=== PATIENT | male | born 1955 | race Caucasian/White ===

== ENCOUNTER → 2017-04-24 | Outpatient (CLI) | payer MEDICARE, MEDICAID ==
[~2017-04-24] MED LIST: ALLO300T2 PO; BNZ40T PO; CLON0.2T PO; DILT240T10 PO; FURO40TA4 PO; METH10TA2 PO; MORP15TA PO; POTA-51 PO
== END ==
LOC: CARD 13:19
PROVIDERS: ATTEND Internal Medicine Interventional Cardiology
DX: R00.1 Bradycardia, unspecified (principal); I10 Essential (primary) hypertension; E66.9 Obesity, unspecified
CPT/HCPCS: 93306

== ENCOUNTER 2017-06-23 08:51 | Outpatient (RCR) | payer MEDICARE, MEDICAID ==
[~2017-06-23 08:51] MED LIST changes: +BENA40TA5 PO; -BNZ40T PO
== END 2017-09-21 | disposition home or self-care (01) ==
LOC: CARD 08:51
PROVIDERS: ATTEND Internal Medicine Interventional Cardiology
DX: R00.1 Bradycardia, unspecified (principal); I10 Essential (primary) hypertension; E66.9 Obesity, unspecified; K74.60 Unspecified cirrhosis of liver
CPT/HCPCS: 93225; 93226

== ENCOUNTER → 2018-12-17 | Outpatient (CLI) | payer MEDICARE, MEDICAID ==
--- NOTE | 2018-12-17 09:21 | Diagnostic Imaging Report ---
CT low-dose lung cancer screening. Indication: 30 pack smoking history. Routine images of thorax were performed using the low-dose lung cancer screening protocol. There are no prior studies available for comparison. The lungs are generally clear. There is no parenchymal lung mass identified. There is no sign of failure, pneumonia or pleural effusion. Heart size is within normal limits. There are coronary artery calcifications evident. The aorta is not abnormally dilated. There is no obvious mediastinal or hilar adenopathy. The thyroid gland where visualized is unremarkable. The sections through the upper abdomen fail to show any sign of acute abnormality. The bone windows are unremarkable for fracture or for a destructive lesion. Impression: 1. There is no parenchymal lung mass identified. A followup low-dose lung cancer screening exam in one year would be recommended for further study. 2. There is no acute cardiopulmonary abnormality noted. 3. There is coronary artery disease. LUNG-RADS category 1 Dictated by: Dictated on workstation # [id number]
== END ==
LOC: RAD 08:05
PROVIDERS: ATTEND Registered Nurse
DX: Z00.00 Encounter for general adult medical examination without abnormal findings (principal); Z87.891 Personal history of nicotine dependence; I25.10 Atherosclerotic heart disease of native coronary artery without angina pectoris

== ENCOUNTER → 2021-08-11 | Outpatient (CLI) | payer MEDICARE, OTHER, MEDICAID ==
[~2021-08-11] MED LIST changes: -BENA40TA5 PO; +BENA40TA84 PO; +CLN.2T PO; -CLON0.2T PO; +METH-742 PO; -METH10TA2 PO
== END ==
LOC: CARD 11:42
PROVIDERS: ATTEND Internal Medicine Cardiovascular Disease
DX: I35.0 Nonrheumatic aortic (valve) stenosis (principal); I51.7 Cardiomegaly
CPT/HCPCS: 93306

== ENCOUNTER → 2021-08-12 | Outpatient (CLI) | payer MEDICARE, MEDICAID ==
[~2021-08-12] VITALS: Ht 177 cm; Wt 102.0 kg
[~2021-08-12] MED LIST changes: +CATHETER FLUSH 10 ML SYR IVP PRN
[2021-08-12 09:02] VITALS: BP 180/94
--- NOTE | 2021-08-13 13:20 | NUCLEAR STRESS TEST ---
TREADMILL NUCLEAR STRESS TEST Date of procedure: 08/12/2021. Primary care provider: Juni Zhang APRN. Admitting physician: Neftali Daniel Jr., MD. INDICATION: Paroxysmal atrial fibrillation. BASELINE ELECTROCARDIOGRAM: Atrial fibrillation with a ventricular rate of 84 bpm with nonspecific intraventricular conduction delay, possible anterior myocardial infarction and nonspecific ST-T wave changes in the lateral leads. STRESS TEST PROCEDURE: The patient was exercised for a total of 2 minutes and 10 seconds of the standard Chao protocol achieving a maximum MET level of 3.6. The resting heart rate was 84 bpm and the peak heart rate was 164 bpm, which represents 107% of the maximum predicted heart rate. The resting blood pressure was 143/85 mmHg and the peak blood pressure was 254/133 mmHg. This represents a normal heart rate and a hypertensive blood pressure response to exercise. The test was stopped due to []. There was no chest discomfort during the test. The patient was in atrial fibrillation for the duration of the test and they were premature ventricular complexes versus aberrancy as isolated and couplet beats during stress. The stress electrocardiogram was indeterminate due to the baseline abnormalities. The patient exhibited fair exercise capacity for age. NUCLEAR PROCEDURE: The patient was administered 10.5 mCi of intravenous technetium 99m Tetrofosmin at rest for the rest images. The patient was subsequently administered 28.1 mCi of intravenous technetium 99 M Tetrofosmin at peak stress for the stress images. Following an appropriate wait after each injection, imaging was obtained. The images were subsequently processed and reformatted in the usual views. Gated imaging was obtained. The image quality was adequate with a mild degree of gastrointestinal attenuation artifact. CT attenuation correction was used as a adjunct to standard imaging. Both the corrected and uncorrected images were reviewed for interpretation. NUCLEAR RESULTS: There was normal myocardial perfusion in all segments without evidence of infarction or ischemia. The left ventricle was dilated with an end- diastolic volume of 153 mL and an end-systolic volume of 114 mL. There was no evidence of transient ischemic dilatation. The TID ratio was 0.97. There was severe global hypokinesis with a calculated ejection fraction of 25%. IMPRESSION: 1. Normal heart rate and a hypertensive blood pressure response to exercise. 2. There was no chest discomfort during the test. 3. The patient was in atrial fibrillation for the duration of the test and there were premature ventricular complexes versus aberrancy as isolated and coup let beats during stress. 4. The stress electrocardiogram was indeterminate due to the baseline abnormalities. 5. The left ventricle was dilated. 6. There was normal myocardial perfusion in all segments without evidence of infarction or ischemia. 7. There was severe global hypokinesis with a calculated ejection fraction of 25%. 8. This is an abnormal result representing an overall high risk for possible future coronary ischemic events mainly related to the left ventricular dilatation and severe left ventricular systolic dysfunction. Certain portions of this document may have been dictated utilizing voice recognition technology. Inherent to this technology, typographical and grammatical errors may exist. As much as I am diligent to identify and correct these mistakes, some errors may remain in the document. NEFTALI DANIEL JR, MD August 13, 2021 13:20
== END ==
LOC: CARD 07:45
PROVIDERS: ATTEND Internal Medicine Cardiovascular Disease
DX: I48.0 Paroxysmal atrial fibrillation (principal)
CPT/HCPCS: 78452; 93017; A9502